=== PATIENT | female | born 1985 | race Caucasian/White ===

== ENCOUNTER 2017-08-03 15:14 | Emergency (ER) | payer MEDICAID ==
[2017-08-03 15:50] VITALS: BP 133/81; PULSE 101; RESP 20; TEMP 98.9; O2SAT 100
--- NOTE | 2017-08-03 17:19 | C.PDOC ---
History Of Present Illness 32 year old female presents to the emergency department complaining of a productive cough with yellow sputum and a subjective fever for the past 3 days. Denies any chest pain or shortness of breath. Has had no sick contacts or recent travel. PMD: Dr. Haylie Acosta Chief Complaint (Nursing): Cough, Cold, Congestion History Per: Patient History/Exam Limitations: no limitations Onset/Duration Of Symptoms: Days (x3) Current Symptoms Are (Timing): Still Present Associated Symptoms: Fever, Cough, Sputum Past Medical History Reviewed: Historical Data, Nursing Documentation, Vital Signs Vital Signs: Last Vital Signs Temp 98.9 F 08/03/17 15:30 Pulse 101 H 08/03/17 15:30 Resp 20 08/03/17 15:30 BP 133/81 08/03/17 15:30 Pulse Ox 100 08/03/17 17:20 - Medical History PMH: No Chronic Diseases Surgical History: No Surg Hx - [facility] Procedures REMOVAL IUD (01/09/15) Family History: States: Unknown Family Hx - Social History Hx Tobacco Use: Yes (<10 cigarettes daily) Hx Alcohol Use: Yes (Socially) Hx Substance Use: No - Immunization History Hx Tetanus Toxoid Vaccination: No Hx Influenza Vaccination: No Hx Pneumococcal Vaccination: No Review Of Systems Except As Marked, All Systems Reviewed And Found Negative. Constitutional: Positive for: Fever Cardiovascular: Negative for: Chest Pain Respiratory: Positive for: Cough, Sputum (yellow). Negative for: Shortness of Breath Gastrointestinal: Negative for: Nausea, Vomiting, Diarrhea Physical Exam - Physical Exam Appears: Non-toxic, No Acute Distress Skin: Normal Color, Warm, Dry Head: Atraumatic, Normacephalic Eye(s): bilateral: Normal Inspection, PERRL, EOMI Nose: Normal Throat: Normal Neck: Normal Cardiovascular: Rhythm Regular, No Murmur Respiratory: Normal Breath Sounds, No Accessory Muscle Use, No Wheezing Gastrointestinal/Abdominal: Normal Exam, No Tenderness, No Distention Back: Normal Inspection Extremity: Normal ROM Neurological/Psych: Oriented x3 ED Course And Treatment O2 Sat by Pulse Oximetry: 100 (RA) Pulse Ox Interpretation: Normal Medical Decision Making Medical Decision Making: Time: 15:59 Initial Plan: --Chest X-Ray Discharge Time: 16:25 Upon reevaluation, patient is feeling better and was discharged home. Patient was advised to follow up with a primary care physician if symptoms worsen. Disposition - Disposition Referrals: [facility], [Non-Staff] - Disposition: HOME/ ROUTINE Disposition Time: 16:10 Condition: GOOD Additional Instructions: Thank you for letting us take care of you today. The emergency medical care you received today was directed at your acute symptoms. If you were prescribed any medication, please fill it and take as directed. It may take several days for your symptoms to resolve. Return to the Emergency Department if your symptoms worsen, do not improve, or if you have any other problems. Please contact your doctor or call one of the physicians/clinics you have been referred to that are listed on the Patient Visit Information form that is included in your discharge packet. Bring any paperwork you were given at discharge with you along with any medications you are taking to your follow up visit. Our treatment cannot replace ongoing medical care by a primary care provider (PCP) outside of the emergency department. Thank you for allowing the [facility] team to be part of your care today. Follow up with your doctor in 2-3 days for re-evaluation and further management. Instructions: Upper Respiratory Infection (ED) Forms: Work Excuse - Clinical Impression Clinical Impression: Upper respiratory infection - Scribe Statement The provider has reviewed the documentation as recorded by the Scribe Mariya Mello All medical record entries made by the Scribe were at my direction and personally dictated by me. I have reviewed the chart and agree that the record accurately reflects my personal performance of the history, physical exam, medical decision making, and the department course for this patient. I have also personally directed, reviewed, and agree with the discharge instructions and disposition.
--- NOTE | 2017-08-04 09:30 | RAD ---
Chest x-ray two views History: Infiltrate. Comparison: None available. Findings: Mild venous congestion. Heart size within normal limits. Impression: Mild venous congestion.
== END 2017-08-03 16:25 | disposition home or self-care (01) ==
LOC: C.ER 15:14
DX: J06.9 Acute upper respiratory infection, unspecified (principal)

== ENCOUNTER 2017-11-06 15:21 | Emergency (ER) | payer MEDICAID ==
[2017-11-06 15:27] VITALS: BMI 355.4
[2017-11-06 15:30] VITALS: RESP 16
--- NOTE | 2017-11-06 15:56 | RAD ---
PROCEDURE: Right Hand Radiographs. HISTORY: injury COMPARISON: None. FINDINGS: BONES: No evidence of acute displaced fracture nor dislocation. Osseous structures intact. No cortical destructive changes. JOINTS: Normal. No osteoarthritic changes. SOFT TISSUES: . There appears to be some minor dorsal soft tissues overlying OTHER FINDINGS: None. IMPRESSION: No evidence acute displaced fracture nor dislocation. If symptoms persist or occult fracture suspected clinically recommend repeat radiographs in 7-10 days as most fractures should become radiographically evident in this timeframe.
--- NOTE | 2017-11-06 16:16 | C.PDOC ---
History Of Present Illness 32 y/o female presents to the ED complaining of right hand injury, sustained today. Patient states she injured the hand playing softball this morning. Now complaining of pain and swelling to dorsum of hand. No changes in sensation. Patient is able to move all digits. Time Seen by Provider: 11/06/17 15:39 Chief Complaint (Nursing): Upper Extremity Problem/Injury History Per: Patient History/Exam Limitations: no limitations Onset/Duration Of Symptoms: Hrs Current Symptoms Are (Timing): Still Present Past Medical History Reviewed: Historical Data, Nursing Documentation, Vital Signs Vital Signs: Last Vital Signs Temp 98.5 F 11/06/17 16:38 Pulse 86 11/06/17 16:38 Resp 16 11/06/17 16:38 BP 118/72 11/06/17 16:38 Pulse Ox 98 11/06/17 16:38 Surgical History: No Surg Hx - [facility] Procedures REMOVAL IUD (01/09/15) Family History: States: Unknown Family Hx - Social History Hx Tobacco Use: Yes (<10 cigarettes daily) Hx Alcohol Use: Yes (Socially) Hx Substance Use: No - Immunization History Hx Tetanus Toxoid Vaccination: No Hx Influenza Vaccination: No Hx Pneumococcal Vaccination: No Review Of Systems Except As Marked, All Systems Reviewed And Found Negative. Musculoskeletal: Positive for: Hand Pain Neurological: Negative for: Weakness, Numbness Physical Exam - Physical Exam Appears: Non-toxic, No Acute Distress Skin: Normal Color, Warm, Dry Head: Atraumatic, Normacephalic Eye(s): bilateral: Normal Inspection, PERRL, EOMI Oral Mucosa: Moist Chest: Symmetrical Respiratory: No Accessory Muscle Use Extremity: Normal ROM, Tenderness (and swelling over the dorsum of right hand), Capillary Refill (< 2 sec), No Deformity Pulses: Left Radial: Normal, Right Radial: Normal Neurological/Psych: Oriented x3, Normal Speech, Normal Motor, Normal Sensation ED Course And Treatment O2 Sat by Pulse Oximetry: 97 (RA) Pulse Ox Interpretation: Normal - Other Rad XR R HAND X-Ray: Read By Radiologist Interpretation: FINDINGS: BONES: No evidence of acute displaced fracture nor dislocation. Osseous structures intact. No cortical destructive changes. JOINTS: Normal. No osteoarthritic changes. SOFT TISSUES: . There appears to be some minor dorsal soft tissues overlying. OTHER FINDINGS: None. IMPRESSION : No evidence acute displaced fracture nor dislocation. If symptoms persist or occult fracture suspected clinically recommend repeat radiographs in 7-10 days as most fractures should become radiographically evident in this timeframe. Progress Note: X-ray obtained and is negative. ANASTASIA wrap applied. Patient is stable for d/c home. Advised to follow up with primary doctor in 1-2 days Disposition Counseled Patient/Family Regarding: Studies Performed, Diagnosis, Need For Followup - Disposition Referrals: Haylie Acosta MD [Medical Doctor] - Disposition: HOME/ ROUTINE Disposition Time: 16:14 Condition: STABLE Additional Instructions: Follow up with PMD within 1-2 days. Return to ED if feel worse. Prescriptions: Ibuprofen [Motrin Tab] 600 mg PO Q8 #30 tab Instructions: Hand Pain Forms: [facility] ([facility] [place]) - Clinical Impression Clinical Impression: Hand pain - PA / TANK WELDER / Resident Statement MD/DO has reviewed & agrees with the documentation as recorded. - Scribe Statement The provider has reviewed the documentation as recorded by the Scribe (Priyanka Sams) All medical record entries made by the Scribe were at my direction and personally dictated by me. I have reviewed the chart and agree that the record accurately reflects my personal performance of the history, physical exam, medical decision making, and the department course for this patient. I have also personally directed, reviewed, and agree with the discharge instructions and disposition.
[2017-11-06 16:38] VITALS: BP 118/72; PULSE 86; TEMP 98.5
[2017-11-06 18:14] VITALS: O2SAT 97
== END 2017-11-06 16:40 | disposition home or self-care (01) ==
LOC: C.ER 15:21
DX: M79.641 Pain in right hand (principal)